=== PATIENT | male | born 1985 | race African-American/Black ===

== ENCOUNTER 2016-09-29 09:03 | Emergency (ER) | payer SELFPAY ==
[~2016-09-29] VITALS: Ht 170.2 cm; Wt 73.0 kg
[2016-09-29] MEDS ORDERED: SODIUM CHLORIDE 0.9% 1,000 ML IV ONE (10:09)
[2016-09-29] MEDS ORDERED: MORPHINE SULFATE 4 MG/ML CPJ (NOT FOR IM USE) IV STA (10:09)
[2016-09-29] MEDS ORDERED: ONDANSETRON HCL 4MG/2ML VIAL IV STA (10:09)
[2016-09-29 10:44] LABS: HEMATOCRIT. 28.1 % (42.0-52.0); HEMOGLOBIN. 9.3 g/dL (14.0-18.0); MEAN CORPUSCULAR HGB CONC 33.1 g/dL (31.0-37.0); MEAN CORPUSCULAR VOLUME 81.7 fL (80.0-94.0); MEAN PLATELET VOLUME 8.1 fl (7.4-10.4); PLATELET 339 x1000/uL (130-400); RED BLOOD CELL COUNT 3.44 mill/uL (4.7-6.1); RED CELL DISTRIBUTION WIDTH 17.4 % (11.6-14.6); WHITE BLOOD COUNT 23.6 x1000/uL (4.5-11.0)
[2016-09-29 10:45] LABS: INR 1.1; PROTHROMBIN TIME 11.2 sec
[2016-09-29 10:46] LABS: CHLORIDE 98 mEq/L (98-107); INDEX HEMOLYSI 1 (1-3); INDEX ICTERIC 1 (1-4); INDEX LIPEMIC 1 (1-3)
[2016-09-29 10:50] LABS: DIFFERENTIAL COMMENT 1
[2016-09-29 10:53] LABS: ALANINE AMINOTRANSFERASE 150 IU/L (13-61); ALBUMIN 3.7 g/dL (3.4-5.0); ANION GAP 21; CARBON DIOXIDE 24 mEq/L (21-32); LIPASE 52 IU/L (73-393); UREA NITROGEN BLOOD 20 mg/dL (7-21); eGFR > 60 mL/min (>60)
[2016-09-29 10:56] LABS: CLARITY URINE CLOUDY (CLEAR); COLOR URINE DARK YELLOW (YELLOW); GLUCOSE URINE NEGATIVE (NEGATIVE); KETONES URINE NEGATIVE (NEGATIVE); LEUKOCYTE ESTERASE URINE NEGATIVE (NEGATIVE); NITRITE URINE NEGATIVE (NEGATIVE); OCCULT BLOOD URINE NEGATIVE (NEGATIVE); PH URINE 5.5 (4.5-8.0); PROTEIN URINE 1+ (NEGATIVE); SPECIFIC GRAVITY URINE 1.036 (1.005-1.030)
[2016-09-29 11:21] LABS: ANISOCYTOSIS 1+; PLATELET ESTIMATE NORMAL
[2016-09-29 11:29] LABS: BACTERIA URINE NONE SEEN; COARSE GRANULAR CASTS URINE 0-5 /lpf; HYALINE CASTS URINE 0-5 /lpf; MUCUS URINE 1+ /lpf (NONE/TRACE); RBC URINE NONE SEEN /hpf (0-2); SQUAMOUS EPITHELIAL CELL URINE FEW /lpf (RARE/1+); WBC URINE NONE SEEN /hpf (0-2)
[2016-09-29] MEDS ORDERED: METRONIDAZOLE 500 MG PREMIX 100 ML IV ONE (12:15)
[2016-09-29] MEDS ORDERED: CEFTRIAXONE 1 G PREMIX 50 ML IV ONE (12:15)
[2016-09-29] MEDS ORDERED: MORPHINE SULFATE 4 MG/ML CPJ (NOT FOR IM USE) IV ONE (18:00)
[2016-09-29 20:49] VITALS: BP 122/79
== END 2016-09-29 21:15 | disposition short-term general hospital (02) ==
LOC: ER 09:04
DX: R10.31 Right lower quadrant pain (principal); R11.2 Nausea with vomiting, unspecified; R18.8 Other ascites; R19.00 Intra-abdominal and pelvic swelling, mass and lump, unspecified site; G43.909 Migraine, unspecified, not intractable, without status migrainosus
CPT/HCPCS: 36415; 74177; 80053; 81001; 83690; 85025; 85610; 96361; 96365; 96367; 96375; 96376; 99285; J0696; J2270; J2405; J3490; J7030; Z7610